=== PATIENT | female | born 1985 | race Caucasian/White ===

== ENCOUNTER 2018-01-08 15:24 | Emergency (ER) | payer SELFPAY ==
[2018-01-08 15:25] VITALS: BP 142/90; PULSE 107; RESP 18; TEMP 36.9; O2SAT 100; BMI 26.4
--- NOTE | 2018-01-08 15:55 | ED.VISSUMM ---
- ER Visit Summary Date of Service: 01/08/18 Chief Complaint: Rash History of Present Illness: The patient is a 32 F who states that last evening she began to have a itchy rash on the back of her neck. The patient notes that today it has spread hands feet some of the torso elbow area. Patient is Benadryl. She Dr. doctor's office who sent her to the emergency department. Patient denies any the usual offenders such as new soaps lotions or detergents etc. He did pull weeds 3 days ago. Physical Examination: Afebrile vital signs are stable There is a slightly raised erythematous blanching rash located on the extremities especially the hands neck para region and feet. Please see T-sheet Emergency Department Course and Treatment: Patient will continue Benadryl and will add in Pepcid as well as prednisone taper. Impression: 1. Contact dermatitis This note was generated with [employer] dictation software. It may contain incorrect words, spelling, and punctuation that were not noted in review of the chart prior to signing ED Disposition - Plan for ED Patient: Disposition: Home or Assisted Living Chief Complaint: Rash Instructions: ED Dermatitis Contact Prescriptions: Prednisone [Deltasone] 60 mg PO DAILY #24 tab Famotidine [Pepcid] 20 mg PO BID #10 tab Referrals: Harlan Rodriguez MD [Primary Care Provider] - 3-5 Days if not improving
== END 2018-01-08 16:09 | disposition home or self-care (01) ==
PROVIDERS: Emergency Provider Emergency Medicine; Family Provider Family Medicine; PCP Family Medicine
DX: L25.9 Unspecified contact dermatitis, unspecified cause (principal); Z72.0 Tobacco use
CPT/HCPCS: 99282

== ENCOUNTER 2021-12-22 10:19 | Emergency (ER) | payer SELFPAY ==
[2021-12-22 10:20] VITALS: BP 158/101; PULSE 81; RESP 16; TEMP 37; O2SAT 97; BMI 30.9
[2021-12-22 10:33] VITALS: BP 119/77; PULSE 69; RESP 18; O2SAT 98
--- NOTE | 2021-12-22 10:45 | EKG12_ITS ---
Test Reason : CP Blood Pressure : / mmHG Vent. Rate : 079 BPM Atrial Rate : 079 BPM P-R Int : 132 ms QRS Dur : 090 ms QT Int : 368 ms P-R-T Axes : 045 051 025 degrees QTc Int : 421 ms Normal sinus rhythm Normal ECG Confirmed by CARLITO IGLESIAS, CARLOS ENRIQUE ([id number]), editor in chief newspaper BORIS ARVIZU ([id number]) on 12/23/2021 8:59:14 AM Referred By: Confirmed By:CARLOS ENRIQUE ESTEBAN MD
--- NOTE | 2021-12-22 10:46 | EDS_ITS ---
HPI History of Present Illness Chief Complaint: Chest Pain Informant: patient and spouse/S.O. Narrative Narrative: 36-year-old female presenting to the emergency department with a chief complaint of chest pain. Patient states that when she got up around 0400 hours to urinate she noticed a slight pressure sensation in her mid chest going into her back. She states it was not severe but as the morning has gone on it has progressively worsened. She states it feels like a balloon is being blown up in her chest. She notes discomfort up into her left neck and her left arm. She denies any leg symptoms. No nausea. She states that it is worse with taking a deep breath. She is never had this before. Nothing makes it better or worse. She went to urgent care and was referred to emergency [facility] Medical History Anxiety Kidney stones Migraine Home Medications duloxetine 60 mg capsule,delayed release 60 mg PO DAILY 12/22/21 [History Last Taken Unknown] hydroxyzine HCl 25 mg tablet 1 tab PO BID PRN PRN Anxiety 12/22/21 [History Last Taken Unknown] sumatriptan succinate 50 mg tablet 50 mg PO Q2H PRN Migraine Headache 12/22/21 [History Last Taken Unknown] topiramate 25 mg tablet (Topamax) 25 mg PO BID 12/22/21 [History Last Taken Unknown] Allergy/AdvReac Type Severity Reaction Status Date / Time doxycycline Allergy Hives Verified 12/22/21 10:27 droperidol AdvReac Other Verified 12/22/21 10:26 Surgical History H/O: hysterectomy History of cholecystectomy Social History Smoking Status: Current every day smoker tobacco type: cigarettes ROS ROS ED Constitutional Constitutional ED: Denies chills or weight loss Eyes Eyes: Denies change in vision or diplopia ENT ENT ED: Denies ear pain, rhinorrhea or sore throat Cardiovascular Cardiovascular: Reports chest pain; Denies orthopnea, palpitations or racing heartbeat Respiratory/Chest Respiratory/Chest: Denies cough, dyspnea or orthopnea Gastrointestinal Gastrointestinal: Denies abdominal pain, diarrhea, nausea or vomiting Genitourinary Genitourinary ED: Denies dysuria, hematuria or urinary frequency Musculoskeletal Musculoskeletal: Reports back pain; Denies arthralgias or myalgias Integumentary Denies abscess or rash Neurologic Neurologic: Denies headache(s) or weakness Psychiatric Psychiatric: Denies anxiety, depression, suicidal ideation or suicidal thoughts Endocrine Endocrinology: Denies polydipsia, polyphagia or polyuria Allergic/Immunologic Allergic/Immunologic ED: Denies mouth swelling, tongue swelling or urticaria EXAM Physical Exam Const Vital Signs: 12/22/21 10:20 12/22/21 10:32 12/22/21 10:33 Temperature 98.6 F Temperature Source Oral Pulse Rate 81 69 Respiratory Rate 16 18 Respiratory Effort Normal Non-Labored Blood Pressure 158/101 H 119/77 Blood Pressure Mean 120 91 Pulse Ox 97 98 Oxygen Delivery Method Room Air Room Air Positive well nourished and well developed General Appearance ED: well developed HEENT Reports normocephalic, head/scalp atraumatic and moist mucous membranes Eyes PERRL and EOMs intact bilaterally Neck no lymphadenopathy, supple and no JVD Resp normal respiratory effort and clear to auscultation bilaterally Cardio regular rate, regular rhythm and no murmurs GI normal to inspection, nondistended, normoactive bowel sounds and non-tender Palpation: soft Back/Spine no CVA tenderness and normal ROM Extremity normal to inspection General Extremety ED: Negative for edema General Extremity: Negative for edema Neuro oriented x3 and CN's II-XII intact bilaterally Sensorium / Orientation: alert Motor Exam: strength 5/5 throughout Psych mental status grossly normal Mood & Affect: Negative for depressed or tearful Skin no rashes or lesions noted and no wounds Heart Score History: Moderately Suspicious ECG: Normal Age: </= 45 years Risk Factors: No Risk Factors Troponin: </= Normal Limit Score: 1 MDM MDM MDM Narrative Medical decision making narrative: My interpretation of the chest x-ray is no acute process. D-dimer is normal. Troponin less than 3. CBC and BMP otherwise negative. I will think the patient has ACS pulmonary embolism. I do not see evidence of dissection or pneumothorax or other intrathoracic emergency. Patient is hemodynamically stable. She will monitor her symptoms return if worsening or concerns follow-up with primary care Lab Data Attestation: I reviewed the patient's lab results. Labs: Laboratory Results - last 24 hr 12/22/21 12/22/21 12/22/21 10:25 10:25 10:25 WBC 7.9 RBC 4.74 Hgb 15.0 Hct 43.0 MCV 90.7 MCH 31.6 MCHC 34.9 RDW Std Deviation 43.1 RDW Coeff of [place] 12.8 Plt Count 266 MPV 9.9 Immature Gran % (Auto) 0.300 Neut % (Auto) 63.1 Lymph % (Auto) 27.4 [place] % (Auto) 5.4 Eos % (Auto) 3.3 Baso % (Auto) 0.5 Absolute Neuts (auto) 5.0 Absolute Lymphs (auto) 2.17 Nucleated RBC % 0 D-Dimer Quant (PE/DVT) < 0.27 L Sodium 138 Potassium 3.8 Chloride 111 H Carbon Dioxide 21.0 Anion Gap 6 BUN 14 Creatinine 0.83 Estim Creat Clear Calc 66.01 Est GFR (MDRD) Af Amer 98 Est GFR (MDRD) Non-Af 81 BUN/Creatinine Ratio 16.8 Glucose 89 Calcium 8.7 Troponin I High Sens < 3 L Radiography Diagnostic Testing: Clinical Impression(s) from Imaging Studies Chest X-Ray 12/22/21 10:57 IMPRESSION: Normal x-ray examination of the chest. Electronically Signed: Homer Kellogg MD at 11:15 EDT , EKG Initial EKG: Comments: Normal sinus rhythm with a ventricular rate of 79 bpm Discharge Plan Triage Chief Complaint: Chest Pain ED Provider: Mat Gomes Dx/Rx/DC Orders Clinical Impression: Chest pain Instructions: ED Chest Pain, Uncertain Cause Prescriptions: No Action sumatriptan succinate 50 mg Tablet 50 mg PO Q2H PRN (Reason: Migraine Headache) Rx Instructions: do not exceed 4 doses per 24 hrs topiramate [Topamax] 25 mg Tablet 25 mg PO BID hydroxyzine HCl 25 mg tablet 1 tab PO BID PRN PRN (Reason: Anxiety) Label Comments: take 1 tablet by mouth up to twice a day if needed for anxiety duloxetine 60 mg Capsule,Delayed Release(Dr/Ec) 60 mg PO DAILY Primary Care Provider: Harlan Rodriguez Referrals: Harlan Rodriguez MD [Primary Care Provider] - 3-5 Days if not improving Disposition Disposition: Home, Self Care
[2021-12-22 10:55] LABS: Absolute Lymphocyte Count 2.17 X10^3/uL (0.83-4.51); Basophil# 0.04 X10^3/uL; Basophil% 0.5 % (0-1); Eosinophil# 0.26 X10^3/uL; Eosinophils% 3.3 % (0-5); Lymphocyte # 2.17 X10^3/ul (0.83-4.51); Lymphocyte % 27.4 % (19-41); Mean Corp Hgb Conc 34.9 g/dL (32-36); Mean Corpuscular Hgb 31.6 pg (27.0-32.0); Mean Corpuscular Volume 90.7 fL (81-99); Mean Platelet Vol. 9.9 fl (6.2-12.0); Monocyte# 0.43 X10^3/uL; Monocyte% 5.4 % (0-10); NRBC Flagged by Analyzer 0 % (0-5); Neutrophil % 63.1 % (47-70); Platelet Count 266 K/mm3 (150-450); RBC Distribution Width CV 12.8 % (11.6-14.6); RBC Distribution Width SD 43.1 fl (35.1-43.9); Red Blood Count 4.74 M/mm3 (4.2-5.4); White Blood Count 7.9 K/mm3 (4.4-11.0)
--- NOTE | 2021-12-22 10:57 | RAD_ITS ---
STUDY: X-RAY CHEST REASON FOR EXAM: Female, 36 years old. Chest pain TECHNIQUE: Single AP portable view of the chest. COMPARISON: Comparison is made with prior study dated 07/18/2014. FINDINGS: EKG electrodes are seen. The lungs are clear and expanded. There is no demonstrated pleural abnormality. Normal size heart. Normal mediastinum and azeem. Normal visualized pulmonary arteries. Normal visualized aortic arch and descending thoracic aorta. Normal visualized thoracic spine. Normal visualized ribs, clavicles, and shoulders. There is no demonstrated abnormality of the visualized soft tissue structures of the upper abdomen. RAD/Chest 1 View (Portable) IMPRESSION: Normal x-ray examination of the chest. Electronically Signed: Homer Kellogg MD at 11:15 EDT ,
[2021-12-22 11:19] LABS: Anion Gap 6 (5-15); BUN 14 mg/dL (7-18); BUN/Creat Ratio 16.8 RATIO (10-20); Calcium,Total 8.7 mg/dL (8.5-10.1); Chloride 111 mmol/L (98-107); Creatinine, Serum 0.83 mg/dL (0.55-1.02); EST Glomerular Filtration Rate 81 mL/min (>60); Est Glom Filt Rate - Afr Amer 98 mL/min (>60); Estimated Creatinine Clearance 66.01 ml/min; Glucose 89 mg/dL (74-106); Potassium 3.8 mmol/L (3.5-5.1); Sodium Level 138 mmol/L (136-145); Troponin-I HS (w/2H Reflex) < 3 pg/mL (3.0-54.0)
[2021-12-22 11:20] LABS: D-Dimer Quantitative (DVT/PE) < 0.27 FEU/ug/m (0.27-0.49)
[2021-12-22 12:53] LABS: Reflex Troponin-HS? (from REC) Y
== END 2021-12-22 12:11 | disposition home or self-care (01) ==
PROVIDERS: Emergency Provider Emergency Medicine; PCP Family Medicine; Visit Provider Emergency Medicine
DX: R07.9 Chest pain, unspecified (principal); F17.210 Nicotine dependence, cigarettes, uncomplicated
CPT/HCPCS: 71045; 80048; 84484; 85025; 85379; 93005; 99284; A4216